=== PATIENT | male | born 2005 | race Asian ===

== ENCOUNTER 2023-01-18 19:49 | Emergency (ER) | payer OTHER ==
[2023-01-18] MEDS ORDERED: Ketorolac Tromethamine 30 MG/ML VIAL ONE (20:38)
== END 2023-01-18 22:28 | disposition home or self-care (01) ==
LOC: CSHERS 19:49
DX: S92.352A Displaced fracture of fifth metatarsal bone, left foot, initial encounter for closed fracture (principal); X50.1XXA Overexertion from prolonged static or awkward postures, initial encounter; Y93.68 Activity, volleyball (beach) (court)
CPT/HCPCS: 29515; J1885